=== PATIENT | male | born 1960 ===

== ENCOUNTER 2025-06-04 12:14 | Emergency (ER) | payer OTHER ==
[~2025-06-04] VITALS: Ht 182.9 cm; Wt 127.0 kg
[2025-06-04 12:16] VITALS: TEMP 37; O2SAT 100
[2025-06-04 13:26] VITALS: BP 131/88; PULSE 100; RESP 18; O2SAT 100
== END 2025-06-04 13:55 | disposition home or self-care (01) ==
LOC: ER 12:14
DX: S51.812A Laceration without foreign body of left forearm, initial encounter (principal); M79.632 Pain in left forearm; E11.9 Type 2 diabetes mellitus without complications; I10 Essential (primary) hypertension; Z86.73 Personal history of transient ischemic attack (TIA), and cerebral infarction without residual deficits; Z91.041 Radiographic dye allergy status; W45.8XXA Other foreign body or object entering through skin, initial encounter; Y93.89 Activity, other specified; Y92.89 Other specified places as the place of occurrence of the external cause; Y99.8 Other external cause status
CPT/HCPCS: 99283; Z7610